=== PATIENT | male | born 1970 | race Caucasian/White ===

== ENCOUNTER 2021-10-06 17:21 | Emergency (ER) | payer MEDICAID, OTHER ==
[~2021-10-06] VITALS: Ht 190.5 cm; Wt 190.5 kg
[~2021-10-06 17:21] MED LIST: AMIO200T61 PO; RIVA20TA PO
[2021-10-06 19:05] VITALS: BP_SYST 153
--- NOTE | 2021-10-06 19:05 | NUR ---
Patient triaged and placed in waiting room. VSS and patient appears in no acute distress at this time. Accompanied by , awaiting available bed, and MD notified of need for MSE.
--- NOTE | 2021-10-06 21:20 | NUR ---
ER examining patient in the triage room.
[2021-10-06] MEDS ORDERED: HYDR-3917 PO (21:25)
--- NOTE | 2021-10-06 22:01 | NUR ---
Patient given written and verbal discharge instructions and verbalizes understanding. ER MD discussed with patient the results and treatment provided. Patient in stable condition. ID arm band removed. Rx of [place] given. Patient educated on pain management and to follow up with PMD. Pain Scale 6/10. Opportunity for questions provided and answered. Medication side effect fact sheet provided.
[2021-10-06 22:02] VITALS: BP_SYST 149
== END 2021-10-06 22:02 | disposition home or self-care (01) ==
LOC: SED 17:21
DX: M79.671 Pain in right foot (principal); E11.9 Type 2 diabetes mellitus without complications; I10 Essential (primary) hypertension; J44.9 Chronic obstructive pulmonary disease, unspecified; I48.91 Unspecified atrial fibrillation; Z79.01 Long term (current) use of anticoagulants; Z86.73 Personal history of transient ischemic attack (TIA), and cerebral infarction without residual deficits; Z79.899 Other long term (current) drug therapy
CPT/HCPCS: 99283